=== PATIENT | male | born 1980 | race Caucasian/White ===

== ENCOUNTER 2017-01-27 20:17 | Emergency (ER) | payer MEDICAID ==
[~2017-01-27] VITALS: Ht 167.6 cm; Wt 63.0 kg
[~2017-01-27 20:17] MED LIST: AMLO-218 PO; ESOM20CA PO; LISI40TA9 PO; SEVE800T10 PO; TRAM-40 PO
[2017-01-27 20:28] VITALS: Ht 167.6 cm; Wt 63.0 kg
[2017-01-27] MEDS ORDERED: LIDOCAINE 2%/EPI MPF (SDV) 20 ML VIAL INJ STA (21:49)
[2017-01-27] MEDS ORDERED: SULF1TAB31 PO (23:05)
[2017-01-27] MEDS ORDERED: CEPH-443 PO (23:05)
--- NOTE | 2017-01-27 23:09 | ERD ---
ER Documentation Chief Complaint Date/Time DATE: 01/27/17 TIME: 23:07 Chief Complaint bump on right buttock x 3days. Hx HD on MWF HPI 6-year-old male who presents with an area of redness and swelling to his right posterior upper thigh that he has had for 3 days. The area is getting larger and more painful. Is been no bleeding drainage. No fever. No other complaints. ROS All systems reviewed and are negative except as per history of present illness. Medications Home Meds Active Scripts Cephalexin* (Keflex*) 500 Mg Capsule, 500 MG PO QID for 7 Days, CAP Prov:JAS TSAI PA-C 01/27/17 Sulfamethoxazole/Trimethoprim* (Bactrim Ds* Tablet) 1 Each Tablet, 1 TAB PO BID , #14 TAB Prov:JAS TSAI PA-C 01/27/17 Esomeprazole Mag Trihydrate (Nexium) 20 Mg Capsule.dr, 20 MG PO DAILY, #30 CAP Prov:CHELSIE TOBIN 06/06/14 Reported Medications Amlodipine Besylate* (Norvasc*) 10 Mg Tablet, 10 MG PO DAILY, TAB 10/15/13 Lisinopril* (Lisinopril*) 40 Mg Tablet, 40 MG PO DAILY, TAB 10/15/13 Tramadol Hcl* (Ultram*) 50 Mg Tablet, 50 MG PO HS Y for PAIN 01/11/11 Sevelamer Hcl* (Renagel*) 800 Mg Tablet, 1600 MG PO PC MEALS 01/11/11 Allergies Allergies: Coded Allergies: No Known Drug Allergies (Verified Allergy, Mild, 01/27/17) PMhx/Soc History of Surgery: Yes (FROILAN AVSHUNT WITH DIALYSIS [id number]) Anesthesia Reaction: No Hx Neurological Disorder: No Hx Respiratory Disorders: No Hx Cardiac Disorders: Yes (HTN, DVT) Hx Psychiatric Problems: No Hx Miscellaneous Medical Probl: Yes (ANEMIA, ESRD) Hx Alcohol Use: No Hx Substance Use: No Hx Tobacco Use: No Smoking Status: Never smoker FmHx Family History: No diabetes Physical Exam Vitals Vital Signs Date Time Temp Pulse Resp B/P Pulse Ox O2 Delivery O2 Flow Rate FiO2 01/27/17 20:28 98.9 80 18 141/82 98 Physical Exam Const: [] Head: Atraumatic Eyes: Normal Conjunctiva ENT: Normal External Ears, Nose and Mouth. Neck: Full range of motion..~ No meningismus. Resp: Clear to auscultation bilaterally Cardio: Regular rate and rhythm, no murmurs Abd: Soft, non tender, non distended. Normal bowel sounds Skin: Right posterior upper thigh has an area of erythema and induration with fluctuance and tenderness and warmth approximately 4 cm in diameter Results 24 hrs Current Medications Medications (Trade) Dose Ordered Sig/Donna Route PRN Reason Start Time Stop Time Status Last Admin Dose Admin Lidocaine/ Epinephrine (Xylocaine 2%/ Epi Mpf(Sdv)) 20 ml ONCE STAT INJ 01/27/17 21:49 01/27/17 21:51 DC Procedures/MDM The abscess was infiltrated with 1% Lidocaine for local anesthesia. A scalpel was then used to incise the central, fluctuant area of the abscess. There was immediate pus drainage from the wound. There were no complications and pt tolerated the procedure well. The would was appropriately dressed and bandaged. Pt was given prescription for bactrim and keflex. I recommended that pt return in 2 days for a wound check. Patient counseled regarding my diagnostic impression and care plan. Prior to discharge all questions answered. Pt agrees with treatment plan and understands strict return precautions. Pt is instructed to follow up with primary care provider within 24-48 hours. Precautionary instructions provided including instructions to return to the ER if not improving or for any worsening or changing symptoms or concerns. Departure Diagnosis: Primary Impression: Abscess Condition: Stable Patient Instructions: Abscess, Incision And Drainage Additional Instructions: Call your primary care doctor TOMORROW for an appointment during the next 1-2 days.See the doctor sooner or return here if your condition worsens before your appointment time. JAS TSAI PA-C Jan 27, 2017 23:09
== END 2017-01-27 23:18 | disposition home or self-care (01) ==
LOC: FTE 20:17
DX: L02.31 Cutaneous abscess of buttock (principal); I12.0 Hypertensive chronic kidney disease with stage 5 chronic kidney disease or end stage renal disease; N18.6 End stage renal disease; Z99.2 Dependence on renal dialysis
CPT/HCPCS: 10060; Z7502

== ENCOUNTER 2018-10-11 18:28 | Emergency (ER) | payer MEDICAID ==
[~2018-10-11] VITALS: Ht 162.6 cm; Wt 62.4 kg
[~2018-10-11 18:28] MED LIST changes: +CEPH-443 PO; +LISI40TA3 PO; -LISI40TA9 PO; -SEVE800T10 PO; +SULF1TAB31 PO; +SVL800C PO; -TRAM-40 PO; +TRAM50TA PO
[2018-10-11 18:33] VITALS: BP 159/89; PULSE 94; RESP 18; Ht 162.6 cm; Wt 62.4 kg
[2018-10-11] MEDS ORDERED: ACETAMINOPHEN 500 MG TAB PO STA (18:50)
[2018-10-11] MEDS ORDERED: DIPHTH/TET/ACEL PERTUSS (ADULT) 0.5 ML VIAL IM* ONE (19:00)
[2018-10-11] MEDS ORDERED: CEPHALEXIN 500 MG CAP PO ONE (19:00)
[2018-10-11] MEDS ORDERED: CEPH-443 PO (19:37)
[2018-10-11] MEDS ORDERED: ACET500C5 PO (19:37)
--- NOTE | 2018-10-11 19:39 | ERD ---
ER Documentation Chief Complaint Chief Complaint pain/swelling right 5th finger, states was doing gardening x 1 week ago HPI 38-year-old male presents with an abrasion on his right fifth digit sustained gardening or working in his garage 1 week ago. He is noticed some more redness and pain over the last few days. Tetanus is not up-to-date. Denies any significant injury to suggest fracture according to patient. Patient has a history of hypertension and is a dialysis patient. ROS All systems reviewed and are negative except as per history of present illness. Medications Home Meds Active Scripts Acetaminophen* (Tylophen*) 500 Mg Capsule, 1 CAP PO Q6H PRN for PAIN AND OR ELEVATED TEMP, #15 CAP Prov:REX SAMANO MD 10/11/18 Cephalexin* (Keflex*) 500 Mg Capsule, 500 MG PO QID for 7 Days, CAP Prov:REX SAMANO MD 10/11/18 Cephalexin* (Keflex*) 500 Mg Capsule, 500 MG PO QID for 7 Days, CAP Prov:JAS TSAI PA-C 01/27/17 Sulfamethoxazole/Trimethoprim* (Bactrim Ds* Tablet) 1 Each Tablet, 1 TAB PO BID, #14 TAB Prov:JAS TSIA PA-C 01/27/17 Esomeprazole Mag Trihydrate (Nexium) 20 Mg Capsule.dr, 20 MG PO DAILY, #30 CAP Prov:CHELSIE TOBIN 06/06/14 Reported Medications Amlodipine Besylate* (Norvasc*) 10 Mg Tablet, 10 MG PO DAILY, TAB 10/15/13 Lisinopril* (Lisinopril*) 40 Mg Tablet, 40 MG PO DAILY, TAB 10/15/13 Tramadol Hcl* (Ultram*) 50 Mg Tablet, 50 MG PO HS PRN for PAIN 01/11/11 Sevelamer Hcl* (Renagel*) 800 Mg Tablet, 1600 MG PO PC MEALS 01/11/11 Allergies Allergies: Coded Allergies: No Known Drug Allergies (Verified Allergy, Mild, 10/11/18) PMhx/Soc History of Surgery: Yes (FROILAN AVSHUNT WITH DIALYSIS [id number] M-[id number]) Anesthesia Reaction: No Hx Neurological Disorder: No Hx Respiratory Disorders: No Hx Cardiac Disorders: Yes (HTN, DVT) Hx Psychiatric Problems: No Hx Miscellaneous Medical Probl: Yes (ANEMIA, ESRD) Hx Alcohol Use: No Hx Substance Use: No Hx Tobacco Use: No Smoking Status: Never smoker FmHx Family History: No diabetes, No coronary disease, No other Physical Exam Vitals Vital Signs Date Temp Pulse Resp B/P (MAP) Pulse Ox O2 O2 Flow FiO2 Time Delivery Rate 10/11/18 98.6 94 18 159/89 97 18:33 (112) Physical Exam Const: No acute distress Head: Atraumatic Eyes: Normal Conjunctiva ENT: Normal External Ears, Nose and Mouth. Neck: Full range of motion. No meningismus. Resp: Clear to auscultation bilaterally Cardio: Regular rate and rhythm, no murmurs Abd: Soft, non tender, non distended. Normal bowel sounds Skin: No petechiae or rashes Back: No midline or flank tenderness Ext: No cyanosis, or edema. Abrasion on the dorsum of the right fifth digit PIP some some surrounding irritation or redness. No proximal tendon tenderness. Restricted range of motion due to mild swelling but no deficits, deformities, induration, streaking. Neur: Awake and alert Psych: Normal Mood and Affect Results 24 hrs Current Medications Medications Dose Sig/Donna Start Time Status Last (Trade) Ordered Route PRN Stop Time Admin Dose Reason Admin 500 mg ONCE STAT 10/11/18 DC 10/11/18 Acetaminophen PO 18:50 19:04 (Tylenol 10/11/18 18:51 Tab) Cephalexin 500 mg ONCE ONCE 10/11/18 DC 10/11/18 (Keflex) PO 19:00 19:04 10/11/18 19:01 Diphtheria/ 0.5 ml ONCE ONCE 10/11/18 DC 10/11/18 Tetanus/Acell IM* 19:00 19:06 Pertussis 10/11/18 19:01 (Adacel) Procedures/MDM Patient given a tetanus booster. X-ray right pinky finger 2V Interpreted by me: Bones: No fracture Joints: No dislocation Foreign body: None. Impression-normal right fifth digit x-ray. Given Keflex and Tylenol. Patient presents with what appears to be an abrasion with possible secondary infection of the right fifth digit. He has no signs to suggest fracture, dislocation, tenosynovitis, osteomyelitis. He has no signs of sepsis, ischemia. He will be discharged home with Keflex, Tylenol, recommendations for recheck in 2 days otherwise with primary care doctor this week. The patient was stable with no new complaints during the ER course. Clinically, there is no current evidence to suggest meningitis, sepsis, acute abdomen, pneumonia, stroke, acute coronary syndrome, pulmonary embolism, aortic dissection or any other emergent condition appearing to require further evaluation or hospitalization. Patient counseled regarding my diagnostic impression and care plan. Prior to discharge all questions answered. Pt agrees with treatment plan and understands strict return precautions. Pt is instructed to follow up with primary care provider within 24-48 hours. Precautionary instructions provided including instructions to return to the ER if not improving or for any worsening or changing symptoms or concerns. Disclaimer: Inadvertent spelling and grammatical errors are likely due to EHR/dictation software use and do not reflect on the overall quality of patient care. Also, please note that the electronic time recorded on this note does not necessarily reflect the actual time of the patient encounter. Departure Diagnosis: Primary Impression: Cellulitis Site of cellulitis: extremity Site of cellulitis of extremity: finger Laterality: right Qualified Codes: L03.011 - Cellulitis of right finger Additional Impression: Finger injury Encounter type: initial encounter Laterality: right Qualified Codes: S69.91XA - Unspecified injury of right wrist, hand and finger(s), initial encounter Condition: Stable Patient Instructions: Cellulitis, Sprain Finger Additional Instructions: X-ray read as normal. Recheck for worsening redness, fevers, new worsening symptoms. REX SAMANO MD Oct 11, 2018 19:39
== END 2018-10-11 19:56 | disposition home or self-care (01) ==
LOC: FTE 18:28
DX: S60.416A Abrasion of right little finger, initial encounter (principal); I12.0 Hypertensive chronic kidney disease with stage 5 chronic kidney disease or end stage renal disease; N18.6 End stage renal disease; L03.011 Cellulitis of right finger; X58.XXXA Exposure to other specified factors, initial encounter; Y92.094 Garage of other non-institutional residence as the place of occurrence of the external cause; Z23 Encounter for immunization; Z99.2 Dependence on renal dialysis
CPT/HCPCS: 73140; 90471; 90715; Z7502; Z7610